=== PATIENT | female | born 1970 | race Caucasian/White ===

== ENCOUNTER 2016-04-23 18:03 | Emergency (ER) | payer OTHER ==
[2016-04-23 18:54] VITALS: TEMP 98.2
[2016-04-23 19:38] VITALS: BP 128/84; PULSE 112; RESP 20; O2SAT 98
== END 2016-04-23 19:15 | disposition home or self-care (01) ==
LOC: ED 18:03
DX: S43.402A Unspecified sprain of left shoulder joint, initial encounter (principal); W19.XXXA Unspecified fall, initial encounter
CPT/HCPCS: 73030; 99282

== ENCOUNTER 2017-10-23 12:56 | Day surgery (SDC) | payer MEDICAID, OTHER ==
[2017-10-23] MEDS ORDERED: LIDOCAINE HCL 1% MPF 30 SOL ONE (13:37)
[2017-10-23] MEDS ORDERED: BUPIVACAINE HCL 0.25% MPF 30 ML SOL INFIL ONE (13:37)
[2017-10-23 13:44] VITALS: RESP 16
[2017-10-23 14:47] VITALS: BP 101/46; PULSE 62; TEMP 98; O2SAT 96
== END 2017-10-23 14:40 | disposition home or self-care (01) | DRG 554 ==
LOC: SURG 12:56
PROVIDERS: ATTEND Nurse Anesthetist, Certified Registered
DX: M12.88 Other specific arthropathies, not elsewhere classified, other specified site (principal)
CPT/HCPCS: J2001

== ENCOUNTER 2017-10-31 08:02 | Day surgery (SDC) | payer MEDICAID, OTHER ==
[2017-10-31] MEDS ORDERED: LIDOCAINE HCL 2% MPF 10 ML SOL ONE (08:47)
[2017-10-31] MEDS ORDERED: BUPIVACAINE HCL 0.25% MPF 30 ML SOL INFIL ONE (08:47)
[2017-10-31 09:42] VITALS: BP 125/79; PULSE 65; RESP 18; TEMP 97.6; O2SAT 98
== END 2017-10-31 10:17 | disposition home or self-care (01) ==
LOC: SURG 08:02
PROVIDERS: ATTEND Nurse Anesthetist, Certified Registered
DX: M12.88 Other specific arthropathies, not elsewhere classified, other specified site (principal)

== ENCOUNTER 2018-01-09 09:31 | Day surgery (SDC) | payer OTHER ==
[2018-01-09] MEDS ORDERED: FENTANYL 100MCG/2ML SOL ONE (10:44)
[2018-01-09] MEDS ORDERED: BUPIVACAINE HCL 0.25% MPF 30 ML SOL INFIL ONE (10:49)
[2018-01-09] MEDS ORDERED: TRIAMCINOLONE ACETONIDE 40 MG/ML SUS ONE (10:49)
[2018-01-09] MEDS ORDERED: LIDOCAINE HCL 2% MPF 10 ML SOL ONE (10:49)
[2018-01-09] MEDS: MIDAZOLAM 2 MG/2 ML SOL ONE ×2 (10:54→11:28)
[2018-01-09 11:50] VITALS: BP 122/84; PULSE 64; RESP 16; TEMP 97.7; O2SAT 96
== END 2018-01-09 12:03 | disposition home or self-care (01) | DRG 554 ==
LOC: SURG 09:31
PROVIDERS: ATTEND Nurse Anesthetist, Certified Registered
DX: M12.88 Other specific arthropathies, not elsewhere classified, other specified site (principal)
CPT/HCPCS: J2250; J3010; J3300

== ENCOUNTER 2018-03-20 13:45 | Day surgery (SDC) | payer OTHER ==
[2018-03-20] MEDS ORDERED: TRIAMCINOLONE ACETONIDE 40 MG/ML SUS ONE (14:33)
[2018-03-20] MEDS ORDERED: LIDOCAINE HCL 1% MPF 30 SOL ONE (14:33)
[2018-03-20] MEDS ORDERED: BUPIVACAINE HCL 0.25% MPF 30 ML SOL INFIL ONE (14:33)
[2018-03-20 15:08] VITALS: BP 117/72; PULSE 68; RESP 16; TEMP 97.9; O2SAT 96
== END 2018-03-20 15:25 | disposition home or self-care (01) | DRG 554 ==
LOC: SURG 13:45
PROVIDERS: ATTEND Nurse Anesthetist, Certified Registered
DX: M12.9 Arthropathy, unspecified (principal)
CPT/HCPCS: J2001; J3300